=== PATIENT | female | born 1940 | race Caucasian/White ===

== ENCOUNTER 2020-12-25 16:29 | Emergency (ER) | payer MEDICARE, OTHER ==
[~2020-12-25] VITALS: Ht 157.5 cm; Wt 63.5 kg
[2020-12-25] MEDS ORDERED: FOSAMAX70 MG PO (16:48)
[2020-12-25] MEDS ORDERED: ASPIRIN81 MG PO (16:49)
[2020-12-25] MEDS ORDERED: LOTENSIN20 MG PO (16:49)
[2020-12-25] MEDS ORDERED: ARICEPT10 MG PO (16:50)
[2020-12-25] MEDS ORDERED: COREG3.125 MG PO (16:50)
[2020-12-25] MEDS ORDERED: PEPCID AC10 MG PO (16:51)
[2020-12-25] MEDS ORDERED: IMODIUM A-D2 M2 (16:51)
[2020-12-25] MEDS ORDERED: LASIX20 MG PO (16:51)
[2020-12-25] MEDS ORDERED: NAMENDA10 MG PO (16:52)
[2020-12-25] MEDS ORDERED: REMERON15 MG PO (16:52)
[2020-12-25] MEDS ORDERED: CYTOTEC200 MCG PO (16:53)
[2020-12-25] MEDS ORDERED: ALDACTONE25 MG PO (16:54)
[2020-12-25] MEDS ORDERED: ZOLOFT50 MG PO (16:54)
[2020-12-25] MEDS ORDERED: MOVE FREE ULTR1 EAC2 PO (16:55)
--- NOTE | 2020-12-25 22:03 | EKG ---
[facility] [address] [facility] [place] [address] Signed Sinus rhythm with 1st degree AV block Left axis deviation Left bundle branch block Abnormal ECG No previous ECGs available Confirmed by DEEP DOMÍNGUEZ MD ([id number] on 12/25/2020 10:03:06 PM Electronically Signed By: DEEP DOMÍNGUEZ MD 12/25/202202 PATIENT NAME: LISA MADISON Electrocardiogram DATE OF : 38 PHYSICIAN: DEEP DOMÍNGUEZ MD REPORT #: [id number] REPORT IS CONFIDENTIAL AND NOT TO BE RELEASED WITHOUT AUTHORIZATION
== END 2020-12-25 20:58 | disposition home or self-care (01) ==
LOC: ED 16:29
DX: S16.1XXA Strain of muscle, fascia and tendon at neck level, initial encounter (principal); S00.93XA Contusion of unspecified part of head, initial encounter; X58.XXXA Exposure to other specified factors, initial encounter; I10 Essential (primary) hypertension; F03.90 Unspecified dementia, unspecified severity, without behavioral disturbance, psychotic disturbance, mood disturbance, and anxiety; Z88.8 Allergy status to other drugs, medicaments and biological substances; Z79.899 Other long term (current) drug therapy; Z88.1 Allergy status to other antibiotic agents; Z79.82 Long term (current) use of aspirin
CPT/HCPCS: 51701; 70450; 71045; 72125; 80053; 81001; 84484; 85025; 93005; 93010; 99284-25